=== PATIENT | female | born 1970 | race Caucasian/White ===

== ENCOUNTER → 2016-10-04 | Day surgery (SDC) | payer OTHER ==
[~2016-10-04] MED LIST: BUPIVACAINE/EPINEPHRINE 0.5% PF 30 ML VIAL ONE; COZA100T PO; GABA300C3 PO; HYDR-2768 PO; LACTATED RINGER'S 1000 ML INJ 1,000 ML ONE; MEPERIDINE HCL 50 MG/ML VIAL ONE; MIDAZOLAM HCL 2 MG/2 ML VIAL ONE; MORPHINE SULFATE 4 MG/ML INJ ONE; ONDANSETRON HCL 4 MG/2 ML VIAL IV PUSH ONE; PERC5TAB12 PO; PROPOFOL 200 MG/20 ML AMP IV ONE; PROZ20CA11 PO; TRIAMCINOLONE ACETONIDE 40 MG/ML VIAL ONE; WELL150T PO; ceFAZolin INJ 1,000 MG VIAL ONE
--- NOTE | 2016-10-06 12:55 | MP ---
cc: PAVAN RAUSCH M.D. DATE OF SURGERY: 10/04/2016 PREOPERATIVE DIAGNOSIS Right knee lateral meniscal tear plus anterior cruciate ligament tear. POSTOPERATIVE DIAGNOSIS Right knee lateral meniscal tear plus anterior cruciate ligament tear. SURGEON Dr. Pavan Rausch. INSTRUCTOR INDUSTRIAL DESIGN PATTI Moore INSTRUCTOR INDUSTRIAL DESIGN PATTI Ruiz The surgical procedure was assisted by my Advanced Registered Nurse Practitioner. My SUPERVISOR ELECTRONICS PROCESSING presence was necessary throughout this case for the manipulation and positioning of the surgical extremity. My SUPERVISOR ELECTRONICS PROCESSING was assisting me throughout the duration of this procedure. The skill set of an Advance Registered Nurse Practitioner was medically necessary to complete this procedure. During the surgical case, the wind energy technician was working at the back table and the Advance Registered Nurse Practitioner was directly assisting me. PROCEDURE Right knee arthroscopy with partial lateral meniscectomy and debridement of anterior cruciate ligament stump. TOURNIQUET TIME Zero minutes. PROCEDURE The patient was brought back to operative theater. She received intravenous Ancef. The right lower extremity was prepped and draped in usual sterile fashion after general anesthesia had been administered. We made standard inferolateral portal followed by inferomedial portal under spinal needle visualization. There was moderate synovitis within the suprapatellar pouch. The patellofemoral joint had minimal grade 1 chondromalacia. Since we got into the anterior notch region we identified that there was significant fraying and subluxation of the anterior cruciate ligament into the medial compartment. We established a medial portal under spinal needle visualization and then immediately debrided this stump of the ACL which then allowed for better visualization and we found that essentially there was chronic full-thickness tear of the anterior cruciate ligament and we found that there was no longer any subluxing tissue after we performed the debridement of the ACL stump. The medial compartment was free of meniscal tear and no significant chondromalacia of the medial compartment was identified. Lateral compartment had a complex tear of the posterior horn of the lateral meniscus. We used an oscillating shaver to perform partial lateral meniscectomy removing about 10% of the meniscus. We probed this and it was stable. The remaining portion of the lateral meniscus and the lateral femoral condyle was intact without significant chondromalacia. There were no loose bodies in the medial or lateral gutters. We did use a concept Bovie to obtain hemostasis around some of the ACL stump which was rather vascular. So there was no ongoing bleeding inside the knee. Fluid was drained from the knee. We then gave interarticular injection with 30 ccs of 0.25% Marcaine with 40 mg of Kenalog. Left sided portals were closed with 2-0 Vicryl followed by 3-0 nylon. The leg was dressed. Postoperative plan is weight-bear as tolerated, early range of motion. MD RAÚL Lai/TANNER /1:35 PM /12:36 PM
== END | disposition home or self-care (01) ==
LOC: ESDC 11:25
PROVIDERS: ATTEND Orthopaedic Surgery
DX: S83.271A Complex tear of lateral meniscus, current injury, right knee, initial encounter (principal); S83.511A Sprain of anterior cruciate ligament of right knee, initial encounter
CPT/HCPCS: 01400; 29881; J0690; J2175; J2250; J2270; J2405; J3010; J3301; J7120

== ENCOUNTER → 2017-02-15 | Day surgery (SDC) | payer OTHER ==
[~2017-02-15] MED LIST changes: +BACITRACIN IM FOR SOLN 50,000 UNIT VIAL ONE; +BUPIVACAINE HCL PF 0.75% 30 ML VIAL ONE; -BUPIVACAINE/EPINEPHRINE 0.5% PF 30 ML VIAL ONE; +EPINEPHrine HCL (1:1000) 30 MG/30 ML VIAL OTHER ONE; +LIDOCAINE 1.5%/EPINEPHrine 1:200,000 PF SOLN 30 ML AMP ONE; +MACR100C2 PO; +MEPERIDINE HCL 25 MG/ML VIAL ONE; -MEPERIDINE HCL 50 MG/ML VIAL ONE; -MIDAZOLAM HCL 2 MG/2 ML VIAL ONE; +MIDAZOLAM HCL 5 MG/ML VIAL (1 ML) ONE; -MORPHINE SULFATE 4 MG/ML INJ ONE; +PROPOFOL 100 MG/10 ML INJ IV ONE; -PROPOFOL 200 MG/20 ML AMP IV ONE; +SODIUM CHLORIDE 0.9% INJ 10 ML ONE; -TRIAMCINOLONE ACETONIDE 40 MG/ML VIAL ONE; +ceFAZolin 2 GM PREMIX 50 ML ONE
--- NOTE | 2017-02-16 07:11 | MP ---
cc: TAVON GUIDRY M.D. DATE OF SURGERY 02/15/2017 PREOPERATIVE DIAGNOSIS Right knee anterior cruciate ligament tear, right knee medial meniscus tear. POSTOPERATIVE DIAGNOSES Right knee anterior cruciate ligament tear, right knee medial meniscus tear. PROCEDURE Right knee arthroscopic assisted anterior cruciate ligament allograft reconstruction, right knee arthroscopic partial medial meniscectomy. SURGEON Dr. Tavon Guidry REFINING EQUIPMENT OPERATOR JOCE Mckoy ANESTHESIA General with a femoral nerve block. ESTIMATED BLOOD LOSS 50 cc TOURNIQUET TIME 0 minutes COMPLICATIONS None IMPLANTS USED Arthrex JUSTIFICATION This patient is a 46-year-old female who sustained injury to the right knee resulting in the above-named condition. She complains of continued symptoms of pain and stability of the right knee. Clinical exam, as well as, MRI confirmed the above-named findings. The patient counseled as to the risks, benefits and alternatives to the above-named proposed surgical procedure. She did wish to proceed with surgery. PROCEDURE IN DETAIL A written consent was obtained. The patient identified by name, taken to the operating room, placed supine on the operating room table and general anesthesia was administered as well as two grams of IV Ancef. She did receive a preoperative right femoral nerve block by the anesthesiologist. The right thigh carefully placed in well-padded leg brito. The right lower extremity prepped and draped using Isopropyl alcohol, Hibiclens solution and DuraPrep solution. After a time-out was performed, a standard medial and lateral parapatellar arthroscopic portal was established. The patellofemoral joint revealed minimal chondromalacia. The medial compartment revealed a complex tear of the posterior horn of the medial meniscus. There was mild grade 2 chondromalacia changes in the medial femoral condyle. An arthroscopic biter, followed by an arthroscopic shaver was introduced into the medial compartment to perform partial medial meniscectomy. The meniscal rim probed and noted to be stable. The intercondylar notch revealed a complete destruction of the anterior cruciate ligament. The posterior cruciate ligament was intact. The lateral compartment was free of meniscal pathology and chondromalacia. The shaver was used to perform debridement of the torn anterior cruciate ligament itself. An arthroscopic bur was used to perform notchplasty. An Arthrex retro-cutting tibial guide centered within the footprint of the ak chin ACL was placed. The guidepin was used to capture the 10 mm drill bit. The tibial tunnel was then retro cut 10 mm in diameter and the shaver was used to clean soft tissue and bone debris from within the knee. An Arthrex 7 mm medial portal [id number] femoral guide was placed at the 10 o'clock position in the origin of the anterior cruciate ligament. The knee was hyperflexed and a guide pin was drilled exiting the superolateral aspect of the knee. Subsequently, a low profile 10 mm cannulated reamer was drilled to a depth of 25 mm. The shaver was again used to clean soft tissue, bone and debris from within the knee joint. A Arthrex FiberLink suture was in place as a shuttling sutures. Subsequently, the posterior tibialis tendon was thawed in antibiotic solution on the back table. Davey easley certified was instrumental in fashioning the graft to a folded diameter of 10 mm. A #2 FiberWire whipstitch was placed in the proximal and distal portion of the graft and the graft free tension was prepared. An Arthrex tightrope anchor was placed along the mid portion of the graft. The sutures from the anchor placed through the eyelet of the FiberLink suture and pulled exiting in the superolateral aspect of the knee. The tightrope anchor was then pulled from the tibial tunnel exiting the femoral tunnel and obtained purchase of the lateral femoral cortex distally. The graft was then fully seated within the femoral tunnel. The knee was taken through a full range of motion. No evidence of pistoning or impingement. With the leg held in near full extension, the graft was tensioned. A guidewire was placed along the anterior border of the graft. An Arthrex 9 x 20 mm bioabsorbable interference delta screw used for fixation of the tibial side. Intraoperative Kizzy exam was performed. The graft exiting the tibial tunnel was removed with a 15 blade scalpel. The tibial incision was closed with 3-0 Vicryl suture. Skin incisions were closed with 3-0 Prolene. Sterile dressings were applied. The patient placed in a knee immobilizer. She tolerated the procedure well with no intraoperative complications noted. Davey Fair, Disk Recordist Certified was present during the entire procedure to include patient positioning and the procedure itself. The medical necessity of a physician doctor assistant was indicated in this case due to the complexity of the procedure, he assisted with appropriate manipulation of the leg and also traction of the muscles. He assisted with manipulation of the leg and also manipulation of the camera. He assisted with drilling of tunnels, passage of suture, passage of the graft and also implantation of internal fixation purposes of the graft. He also assisted with preparation of the graft on the back table. MD IZAIAH Shell/NEIDA /3:15 PM /6:46 AM
== END | disposition home or self-care (01) ==
LOC: ESDC 11:52
PROVIDERS: ATTEND Orthopaedic Surgery Sports Medicine
DX: S83.511A Sprain of anterior cruciate ligament of right knee, initial encounter (principal); S83.231A Complex tear of medial meniscus, current injury, right knee, initial encounter
CPT/HCPCS: 01400; 01991; 29881; 29888; 64447; C1713; J0171; J0690; J2175; J2250; J2405; J3010; J7120

== ENCOUNTER 2017-03-18 04:38 | Emergency (ER) | payer OTHER ==
[~2017-03-18] VITALS: Ht 157.5 cm; Wt 80.0 kg
[~2017-03-18 04:38] MED LIST changes: -BACITRACIN IM FOR SOLN 50,000 UNIT VIAL ONE; -BUPIVACAINE HCL PF 0.75% 30 ML VIAL ONE; -EPINEPHrine HCL (1:1000) 30 MG/30 ML VIAL OTHER ONE; -LACTATED RINGER'S 1000 ML INJ 1,000 ML ONE; -LIDOCAINE 1.5%/EPINEPHrine 1:200,000 PF SOLN 30 ML AMP ONE; -MACR100C2 PO; -MEPERIDINE HCL 25 MG/ML VIAL ONE; -MIDAZOLAM HCL 5 MG/ML VIAL (1 ML) ONE; -ONDANSETRON HCL 4 MG/2 ML VIAL IV PUSH ONE; -PROPOFOL 100 MG/10 ML INJ IV ONE; -SODIUM CHLORIDE 0.9% INJ 10 ML ONE; -ceFAZolin 2 GM PREMIX 50 ML ONE; -ceFAZolin INJ 1,000 MG VIAL ONE
[2017-03-18 04:42] VITALS: PULSE 120; RESP 18; TEMP 98.4; O2SAT 97
[2017-03-18] MEDS ORDERED: SODIUM CHLOR 0.9% 1000 ML INJ 1,000 ML IV SCH (04:54)
[2017-03-18] MEDS ORDERED: MIDAZOLAM HCL 2 MG/2 ML VIAL IM ONE (05:00)
[2017-03-18] MEDS ORDERED: SODIUM CHLORIDE 0.9% FLUSH 5 ML FLUSH IV FLUSH PRN (05:00)
[2017-03-18] MEDS ORDERED: LORazepam 2 MG/ML VIAL IM ONE (05:00)
[2017-03-18 05:10] LABS: AUTOMATED NEUTROPHIL # 8.7 TH/MM3 (1.8-7.7); BASOPHIL # 0.1 TH/MM3 (0-0.2); BASOPHIL % 0.5 % (0.0-2.0); HEMATOCRIT 42.6 % (35.0-46.0); HEMO FLAGS DIFF FINAL; LYMPH % 28.6 % (9.0-44.0); LYMPHOCYTE # 4.3 TH/MM3 (1.0-4.8); MEAN CELL VOLUME 88.6 FL (80.0-100.0); MEAN CORPUSCULAR HEMOGLOBIN 29.7 PG (27.0-34.0); MEAN CORPUSCULAR HGB CONC 33.6 % (32.0-36.0); MONO % 13.3 % (0.0-8.0); NEUT % 57.6 % (16.0-70.0); PLATELET COUNT 397 TH/MM3 (150-450); RED BLOOD COUNT 4.81 MIL/MM3 (4.00-5.30); RED CELL DISTRIBUTION WIDTH 13.1 % (11.6-17.2); WHITE BLOOD COUNT 15.1 TH/MM3 (4.0-11.0)
[2017-03-18 05:31] LABS: ALT (GPT) 40 U/L (10-53); ANION GAP 9 MEQ/L (5-15); AST (GOT) 28 U/L (15-37); BICARBONATE 24.9 MEQ/L (21.0-32.0); BLOOD UREA NITROGEN 7 MG/DL (7-18); CHLORIDE 103 MEQ/L (98-107); GLOMERULAR FILTRATION RATE 60 ML/MIN (>89); POTASSIUM 3.3 MEQ/L (3.5-5.1); SODIUM (NA) 137 MEQ/L (136-145)
[2017-03-18 05:33] LABS: ALKALINE PHOSPHATASE 67 U/L (45-117); CREATINE KINASE 208 U/L (26-192); TOTAL BILIRUBIN ADULT 0.3 MG/DL (0.2-1.0)
--- NOTE | 2017-03-18 05:34 | RADRPT ---
EXAM DATE/TIME: 03/18/2017 05:11 [place] COMPARISON: No previous studies available for comparison. INDICATIONS : Syncope. MEDICAL HISTORY : None. SURGICAL HISTORY : Clavicle ENCOUNTER: Initial ACUITY: 1 day PAIN SCORE: Non-responsive. LOCATION: Bilateral chest FINDINGS: Limited anatomic detail due to the patient's body habitus and motion artifact. Lungs are grossly renetta r. Accounting for low lung findings, the heart size is normal. Sideplate and osseous screws secure an old left clavicular fracture. Osseous structures are otherwise intact CONCLUSION: 1. Limited anatomic detail due to patient body habitus and motion artifact. 2. Grossly, no acute cardiopulmonary process. Kodi Melchor MD on March 18, 2017 at 5:31 Board Certified Radiologist. This report was verified electronically.
[2017-03-18 05:37] LABS: ALCOHOL 279 MG/DL (0-5)
[2017-03-18 05:52] LABS: CKMB 4.3 NG/ML (0.5-3.6)
[2017-03-18 06:22] VITALS: BP 174/72; PULSE 90; RESP 18; O2SAT 95
--- NOTE | 2017-03-18 06:39 | PD ---
HPI Chief Complaint: Altered Mental Status Time Seen by Provider: 04:54 Travel History International Travel<30 days: No Contact w/Intl Traveler<30days: No Traveled to known affect area: No History of Present Illness HPI Patient is a 46-year-old female brought in by EMS after she was found laying in the dirt. She has been aggressive and uncooperative, refusing to ride a history. EMS does state that she had a white powdery substance in her purse that was confiscated by police. She is yelling and screaming, clearly intoxicated and refusing to answer any questions. FORMERLY [facility] Past Medical History Medical History: Unable to Obtain Diminished Hearing: No Hypertension: Yes Musculoskeletal: Yes (neck and back pain) ?: Unknown LMP: unable to obtain Past Surgical History Surgical History: Unable to Obtain Social History Alcohol Use: Yes Tobacco Use: Yes Substance Use: Yes Allergies-Medications (Allergen,Severity, Reaction): Coded Allergies: diclofenac (Unverified Allergy, Severe, HIVES, 03/18/17) etodolac (Unverified Allergy, Severe, HIVES, 03/18/17) flurbiprofen (Unverified Allergy, Severe, HIVES, 03/18/17) ibuprofen (Unverified Allergy, Severe, HIVES, 03/18/17) indomethacin (Unverified Allergy, Severe, HIVES, 03/18/17) ketoprofen (Unverified Allergy, Severe, HIVES, 03/18/17) ketorolac (Unverified Allergy, Severe, HIVES, 03/18/17) naproxen (Unverified Allergy, Severe, HIVES, 03/18/17) oxaprozin (Unverified Allergy, Severe, HIVES, 03/18/17) Reported Meds & Prescriptions Reported Meds & Active Scripts Active Active Prescriptions or Reported Medications Unobtainable Review of Systems ROS Limitations: Intoxication, Altered Mental Status Physical Exam Narrative GENERAL: Awake, alert, aggressive and uncooperative. She is unkept and covered in dirt. SKIN: Focused skin assessment warm/dry. HEAD: Atraumatic. Normocephalic. EYES: Pupils equal and round and large. No scleral icterus. Extraocular movements intact. ENT: Mucous membranes pink and moist. NECK: Trachea midline. No JVD. CARDIOVASCULAR: Regular rate and rhythm. No murmur appreciated. RESPIRATORY: No accessory muscle use. Clear to auscultation. Breath sounds equal bilaterally. GASTROINTESTINAL: Abdomen soft, non-tender, nondistended. MUSCULOSKELETAL: No obvious deformities. No clubbing. No cyanosis. No edema. NEUROLOGICAL: Awake and alert. No obvious cranial nerve deficits. Motor grossly within normal limits. Normal speech. Data Data Last Documented VS Vital Signs Date Time Temp Pulse Resp B/P (MAP) Pulse Ox O2 Delivery O2 Flow Rate FiO2 03/18/17 06:22 90 18 174/72 (106) 95 Room Air 03/18/17 04:42 98.4 Orders Orders Electrocardiogram (03/18/17 04:54) Complete Blood Count With Diff (03/18/17 04:54) Comprehensive Metabolic Panel (03/18/17 04:54) Creatine Kinase (Cpk) (03/18/17 04:54) Urinalysis - C+S If Indicated (03/18/17 04:54) Chest, Single Ap (03/18/17 04:54) Blood Glucose (03/18/17 04:54) Ecg Monitoring (03/18/17 04:54) Iv Access Insert/Monitor (03/18/17 04:54) Oximetry (03/18/17 04:54) Sodium Chloride 0.9% Flush (Ns Flush) (03/18/17 05:00) Sodium Chlor 0.9% 1000 Ml Inj (Ns 1000 M (03/18/17 04:54) Drug Screen, Random Urine (03/18/17 04:54) Alcohol (Ethanol) (03/18/17 04:54) Midazolam Inj (Versed Inj) (03/18/17 05:00) Lorazepam Inj (Ativan Inj) (03/18/17 05:00) CKMB (03/18/17 04:54) CKMB% (03/18/17 04:54) Labs Laboratory Tests Test 03/18/17 04:54 White Blood Count 15.1 TH/MM3 Red Blood Count 4.81 MIL/MM3 Hemoglobin 14.3 GM/DL Hematocrit 42.6 % Mean Corpuscular Volume 88.6 FL Mean Corpuscular Hemoglobin 29.7 PG Mean Corpuscular Hemoglobin Concent 33.6 % Red Cell Distribution Width 13.1 % Platelet Count 397 TH/MM3 Mean Platelet Volume 7.5 FL Neutrophils (%) (Auto) 57.6 % Lymphocytes (%) (Auto) 28.6 % Monocytes (%) (Auto) 13.3 % Eosinophils (%) (Auto) 0.0 % Basophils (%) (Auto) 0.5 % Neutrophils # (Auto) 8.7 TH/MM3 Lymphocytes # (Auto) 4.3 TH/MM3 Monocytes # (Auto) 2.0 TH/MM3 Eosinophils # (Auto) 0.0 TH/MM3 Basophils # (Auto) 0.1 TH/MM3 CBC Comment DIFF FINAL Differential Comment Blood Urea Nitrogen 7 MG/DL Creatinine 1.00 MG/DL Random Glucose 128 MG/DL Total Protein 9.0 GM/DL Albumin 4.6 GM/DL Calcium Level 9.0 MG/DL Alkaline Phosphatase 67 U/L Aspartate Amino Transf (AST/SGOT) 28 U/L Alanine Aminotransferase (ALT/SGPT) 40 U/L Total Bilirubin 0.3 MG/DL Sodium Level 137 MEQ/L Potassium Level 3.3 MEQ/L Chloride Level 103 MEQ/L Carbon Dioxide Level 24.9 MEQ/L Anion Gap 9 MEQ/L Estimat Glomerular Filtration Rate 60 ML/MIN Total Creatine Kinase 208 U/L Creatine Kinase MB 4.3 NG/ML Creatine Kinase MB % 2.1 % Ethyl Alcohol Level 279 MG/DL [facility] Medical Decision Making Medical Screen Exam Complete: Yes Emergency Medical Condition: Yes Medical Record Reviewed: Yes Interpretation(s) ECG shows sinus tachycardia at 104, no ST elevation or depression, large artifact due to patient motion Differential Diagnosis Intoxication versus electrolyte abnormality versus psychosis Narrative Course Patient is a 46-year-old female brought in by EMS after she was found laying in the dirt. Patient is uncooperative and aggressive. She had to be given Ativan and Versed to help calm her down. Labs were sent show an alcohol level of 279.. She has a white blood cell count of 15, this is likely a stress response. She is given IV fluids. Observed in the emergency Department until sober to be reassessed. Patient signed out to Dr. Gonzalez to observe the patient for some variety and reassess. Diagnosis Primary Impression: Alcohol intoxication Qualified Codes: F10.920 - Alcohol use, unspecified with intoxication, uncomplicated Scripts Unable to Obtain Active Prescriptions or Reported Meds Condition: Stable Angelica Dominique MD Mar 18, 2017 06:39
[2017-03-18 08:04] VITALS: PULSE 99; RESP 15; O2SAT 96
[2017-03-18 08:15] LABS: BLOOD, URINE LARGE (NEG); COMMENT (UR) CATH-CULTURE IND; CULTURE IF INDICATED CATH CULTURE IND; GLUCOSE,URINE NEG (NEG); KETONE, URINE NEG (NEG); NITRITE,URINE NEG (NEG); SQUAMOUS EPITHELIAL CELL URINE 1 /hpf (0-5)
[2017-03-18 08:16] LABS: URINE COLOR LIGHT-RED (YELLW/STRAW)
--- NOTE | 2017-03-18 09:06 | EKG ---
Date Performed: 03/18/2017 Time Performed: 05:03:56 PTAGE: 46 years EKG: Baseline artifact present SINUS TACHYCARDIA Nonspecific ST and T wave abnormalities ABNORMA L ECG NO PREVIOUS TRACING DOCTOR: Ritesh Milan Interpretating Date/Time 03/18/2017 09:05:51
[2017-03-18] MEDS ORDERED: MACR100C2 PO (13:53)
--- NOTE | 2017-03-18 13:58 | PD ---
Physical Exam Date Seen by Provider: Mar 18, 2017 Time Seen by Provider: 13:55 Narrative The patient was seen and evaluated by Dr. Angelica Paulson. The patient was slotted for sleepy and off. She presented acutely agitated and aggressive. The patient had an alcohol level greater than 200. She also had cocaine, benzodiazepine and opiates on board. The patient did receive benzodiazepines here prior to her urinalysis. She is awake alert and appropriate. She wants to be discharged with that she can see her significant other in the hospital. Her potassium was noted to be 3.3. She'll be given 10 mg of potassium and told to increase her potassium rich diet. Urinalysis also showed glucose urea. She' ll be given Macrobid for this. Data Data Last Documented VS Vital Signs Date Time Temp Pulse Resp B/P (MAP) Pulse Ox O2 Delivery O2 Flow Rate FiO2 03/18/17 08:04 99 15 96 Room Air 03/18/17 04:42 98.4 Orders Orders Electrocardiogram (03/18/17 04:54) Complete Blood Count With Diff (03/18/17 04:54) Comprehensive Metabolic Panel (03/18/17 04:54) Creatine Kinase (Cpk) (03/18/17 04:54) Urinalysis - C+S If Indicated (03/18/17 04:54) Chest, Single Ap (03/18/17 04:54) Blood Glucose (03/18/17 04:54) Ecg Monitoring (03/18/17 04:54) Iv Access Insert/Monitor (03/18/17 04:54) Oximetry (03/18/17 04:54) Sodium Chloride 0.9% Flush (Ns Flush) (03/18/17 05:00) Sodium Chlor 0.9% 1000 Ml Inj (Ns 1000 M (03/18/17 04:54) Drug Screen, Random Urine (03/18/17 04:54) Alcohol (Ethanol) (03/18/17 04:54) Midazolam Inj (Versed Inj) (03/18/17 05:00) Lorazepam Inj (Ativan Inj) (03/18/17 05:00) CKMB (03/18/17 04:54) CKMB% (03/18/17 04:54) Restraints Violent (03/18/17 06:58) Urine Culture (03/18/17 07:40) Labs Laboratory Tests Test 03/18/17 04:54 03/18/17 07:40 White Blood Count 15.1 TH/MM3 Red Blood Count 4.81 MIL/MM3 Hemoglobin 14.3 GM/DL Hematocrit 42.6 % Mean Corpuscular Volume 88.6 FL Mean Corpuscular Hemoglobin 29.7 PG Mean Corpuscular Hemoglobin Concent 33.6 % Red Cell Distribution Width 13.1 % Platelet Count 397 TH/MM3 Mean Platelet Volume 7.5 FL Neutrophils (%) (Auto) 57.6 % Lymphocytes (%) (Auto) 28.6 % Monocytes (%) (Auto) 13.3 % Eosinophils (%) (Auto) 0.0 % Basophils (%) (Auto) 0.5 % Neutrophils # (Auto) 8.7 TH/MM3 Lymphocytes # (Auto) 4.3 TH/MM3 Monocytes # (Auto) 2.0 TH/MM3 Eosinophils # (Auto) 0.0 TH/MM3 Basophils # (Auto) 0.1 TH/MM3 CBC Comment DIFF FINAL Differential Comment Blood Urea Nitrogen 7 MG/DL Creatinine 1.00 MG/DL Random Glucose 128 MG/DL Total Protein 9.0 GM/DL Albumin 4.6 GM/DL Calcium Level 9.0 MG/DL Alkaline Phosphatase 67 U/L Aspartate Amino Transf (AST/SGOT) 28 U/L Alanine Aminotransferase (ALT/SGPT) 40 U/L Total Bilirubin 0.3 MG/DL Sodium Level 137 MEQ/L Potassium Level 3.3 MEQ/L Chloride Level 103 MEQ/L Carbon Dioxide Level 24.9 MEQ/L Anion Gap 9 MEQ/L Estimat Glomerular Filtration Rate 60 ML/MIN Total Creatine Kinase 208 U/L Creatine Kinase MB 4.3 NG/ML Creatine Kinase MB % 2.1 % Ethyl Alcohol Level 279 MG/DL Urine Color LIGHT-RED Urine Turbidity HAZY Urine pH 6.0 Urine Specific [place] 1.011 Urine Protein TRACE mg/dL Urine Glucose (UA) NEG mg/dL Urine Ketones NEG mg/dL Urine Occult Blood LARGE Urine Nitrite NEG Urine Bilirubin NEG Urine Urobilinogen LESS THAN 2.0 MG/DL Urine Leukocyte Esterase NEG Urine RBC /hpf Urine WBC 74 /hpf Urine Squamous Epithelial Cells 1 /hpf Microscopic Urinalysis Comment CATH-CULTURE IND Urine Opiates Screen POS Urine Barbiturates Screen NEG Urine Amphetamines Screen NEG Urine Benzodiazepines Screen POS Urine Cocaine Screen POS Urine Cannabinoids Screen NEG MDM Medical Record Reviewed: Yes Supervised Visit with JOSE MANUEL: No Narrative Course 46-year-old female who is brought in with altered mental status and agitation. The patient appeared to be under the influence. Patient's blood alcohol level was 250. She also had opiates and cocaine and her tox screen. Potassium was slightly low. Urinalysis showed leukouria. She is awake appropriate and not suicidal or homicidal. She she's been instructed to avoid drugs. She's also instructed to avoid Alkol. She is instructed to increase her potassium rich diet. She'll be treated with the Macrobid for her white blood cells in her urine. There is a culture pending at this time. Diagnosis Primary Impression: Alcohol intoxication Qualified Codes: F10.920 - Alcohol use, unspecified with intoxication, uncomplicated Additional Impressions: Polysubstance abuse mild hypokalemia leukouria Additional Instruction: Avoid alcohol and drugs. Increase her potassium rich diet which will include creamy few vegetables, potatoes and bananas. Follow up with primary care doctor for a repeat urinalysis in 1-2 weeks. Med/Other Pt SpecificInfo: Prescription(s) given Scripts Nitrofurantoin Monohydrate Macrocrystals (Macrobid) 100 Mg Cap 100 MG PO BID for Infection for 14 Days, #28 CAP 0 Refills Prov: Eugenio Gonzalez MD 03/18/17 Disposition: 01 DISCHARGE HOME Condition: Stable Eugenio Gonzalez MD Mar 18, 2017 13:58
[2017-03-18 14:00] VITALS: BP 141/66; PULSE 86; RESP 16; O2SAT 99
[2017-03-18] MEDS ORDERED: POTASSIUM CHLORIDE 10 MEQ CONTROLLED RELEASE TAB PO ONE (14:00)
[2017-03-18 14:06] VITALS: BP 141/66; PULSE 88; RESP 16; TEMP 98.5; O2SAT 95
== END 2017-03-18 14:14 | disposition home or self-care (01) ==
LOC: NEPC 04:38
DX: F10.129 Alcohol abuse with intoxication, unspecified (principal); F19.10 Other psychoactive substance abuse, uncomplicated; E87.6 Hypokalemia; N89.8 Other specified noninflammatory disorders of vagina; R00.0 Tachycardia, unspecified; R94.31 Abnormal electrocardiogram [ECG] [EKG]; I10 Essential (primary) hypertension; Z72.0 Tobacco use; Z88.6 Allergy status to analgesic agent
CPT/HCPCS: 71010; 80053; 80307; 81001; 82550; 82552; 85025; 87086; 93005; 96360; 96372; 99285; J2060; J2250; J7030